=== PATIENT | female | born 2000 | race Hispanic/Latino ===

== ENCOUNTER 2022-11-20 23:24 | Emergency (ER) | payer BC | END 2022-11-21 00:35 | disposition left against medical advice (07) | LOC: ERS 23:24 | DX: Z53.21 Procedure and treatment not carried out due to patient leaving prior to being seen by health care provider (principal) ==

== ENCOUNTER 2023-01-07 17:52 | Emergency (ER) | payer BC, OTHER ==
[2023-01-07] MEDS ORDERED: Ibuprofen 800 MG TAB ONE (19:14)
[2023-01-07] MEDS ORDERED: HYDROcodone/Acetaminophen 5/325 mg Tablet ONE (19:14)
== END 2023-01-07 19:25 | disposition home or self-care (01) ==
LOC: ERS 17:52
DX: S42.025A Nondisplaced fracture of shaft of left clavicle, initial encounter for closed fracture (principal); E11.9 Type 2 diabetes mellitus without complications; X50.0XXA Overexertion from strenuous movement or load, initial encounter; Y99.0 Civilian activity done for income or pay

== ENCOUNTER 2023-09-24 07:17 | Emergency (ER) | payer BC ==
[2023-09-24] MEDS ORDERED: Ketorolac Tromethamine 30 MG (1 mL) VIAL ONE (07:47)
[2023-09-24] MEDS ORDERED: HYDROcodone/Acetaminophen 10/325 mg Tablet ONE (07:47)
== END 2023-09-24 09:27 | disposition home or self-care (01) ==
LOC: ERS 07:17
DX: S39.012A Strain of muscle, fascia and tendon of lower back, initial encounter (principal); E11.9 Type 2 diabetes mellitus without complications; X58.XXXA Exposure to other specified factors, initial encounter; Z79.84 Long term (current) use of oral hypoglycemic drugs
CPT/HCPCS: 93005; 96372; J1885